=== PATIENT | female | born 1940 | race African-American/Black ===

== ENCOUNTER 2020-11-01 05:16 | Inpatient (IN) ==
[2020-11-01] MEDS ORDERED: VANCOMYCIN INJ 1,000 MG in SODIUM CHLORIDE 0.9% 250 ML IV ONE (06:00)
[2020-11-01] MEDS ORDERED: CLINDAMYCIN INJ 900 MG in PREMIX 1 EACH IV ONE (06:00)
[2020-11-01] MEDS ORDERED: ACETAMINOPHEN 500 MG TABLET PO ONE (06:56)
[2020-11-01] MEDS ORDERED: FAMOTIDINE 20 MG TABLET PO ONE (06:56)
[2020-11-01] MEDS ORDERED: GABAPENTIN 400 MG CAPSULE PO ONE (06:56)
[2020-11-01] MEDS ORDERED: DIAZEPAM 5 MG TABLET PO ONE (06:56)
[2020-11-01] MEDS ORDERED: LACTATED RINGERS 1,000 ML IV SCH (07:00)
[2020-11-01] MEDS ORDERED: ONDANSETRON 4 MG/2 ML VIAL IV PRN (08:37)
[2020-11-01] MEDS ORDERED: MAGNESIUM HYDROXIDE SUSP 30 ML UDCUP PO PRN (08:37)
[2020-11-01] MEDS ORDERED: PROMETHAZINE 25 MG/1 ML VIAL IM PRN (08:37)
[2020-11-01] MEDS ORDERED: BISACODYL 10 MG SUPP RECTAL PRN (08:37)
[2020-11-01] MEDS ORDERED: LACTULOSE 20 GM/30 ML UDCUP PO PRN (08:37)
[2020-11-01] MEDS ORDERED: diphenhydrAMINE CAP 25 MG CAPSULE PO PRN (08:37)
[2020-11-01] MEDS ORDERED: LEVOTHYROXINE 75 MCG TABLET PO SCH (09:00)
[2020-11-01] MEDS ORDERED: LIDOCAINE 1% 5 ML VIAL ONE (11:08)
[2020-11-01] MEDS ORDERED: ROPIVACAINE 0.5% 30 ML VIAL ONE (11:08)
[2020-11-01] MEDS ORDERED: DEXAMETHASONE 4 MG/1 ML VIAL ONE (11:08)
[2020-11-01] MEDS ORDERED: PHENYLEPHRINE 1 MG/10 ML SYRINGE IV ONE ×2 (11:10→12:56)
[2020-11-01] MEDS ORDERED: SODIUM CHLORIDE 0.9% 100 ML IV ONE (11:10)
[2020-11-01] MEDS ORDERED: MIDAZOLAM 2 MG/2 ML VIAL ONE (11:10)
[2020-11-01] MEDS ORDERED: LIDOCAINE 2% 5 ML VIAL ONE (11:10)
[2020-11-01] MEDS ORDERED: fentaNYL 100 MCG/2 ML VIAL ONE (11:11)
[2020-11-01] MEDS ORDERED: BUPIVACAINE SPINAL 0.75% 2 ML AMP SPINAL ONE (12:56)
[2020-11-01] MEDS ORDERED: ONDANSETRON 4 MG/2 ML VIAL ONE (12:56)
[2020-11-01] MEDS ORDERED: TRANEXAMIC ACID 1,000 MG/10 ML VIAL ONE (12:56)
[2020-11-01 15:51] LABS: Basophils % 0.1 % (0.0-0.8); Eosinophils % 0.1 % (0.00-10.9); Hematocrit 34.5 VOL% (35.7-47.0); Hemoglobin 11.6 GM/DL (12.0-16.0); Immature Granulocytes % 0.5 %; Immature Granulocytes Absolute 0.04 #; Lymphocytes # 0.8 10*3/uL (1.4-4.0); Lymphocytes % 9.5 % (21.3-54.2); Mean Corpuscular HGB Conc 33.6 GM/DL (32-36); Mean Corpuscular Volume 87.8 FL (87-102); Mean Platelet Volume 8.6 FL (9.6-12.0); Neutrophils % 86.8 % (38.7-73.9); Platelet Count 424 T/CUMM (130-400); Red Blood Count 3.93 MC/CUMM (3.8-5.5); Red Cell Distribution Width 15.7 % (9.3-17.3); White Blood Count 8.4 T/CUMM (4-12)
[2020-11-01] MEDS: MORPHINE 4 MG/1 ML VIAL IV PRN (15:52)
[2020-11-01 16:09] LABS: Calcium 8.6 MG/DL (8.5-10.1); Osmolality,Calculated 273.8 MOS/KG (273-304); Potassium 3.5 MMOL/L (3.5-5.1)
[2020-11-01] MEDS: GABAPENTIN 300 MG CAPSULE PO SCH (17:25)
[2020-11-01] MEDS: hydroCHLOROthiazide 25 MG TABLET PO SCH (17:26)
[2020-11-01] MEDS: DOCUSATE SODIUM 100 MG CAPSULE PO SCH ×2 (17:26→21:06)
[2020-11-01] MEDS: CLINDAMYCIN INJ 900 MG in PREMIX 1 EACH IV SCH ×2 (17:56→23:44)
[2020-11-01] MEDS ORDERED: FONDAPARINUX 2.5 MG/0.5 ML SYRINGE SUBCUT SCH (20:00)
[2020-11-01] MEDS: SIMVASTATIN 40 MG TABLET PO SCH (21:06)
[2020-11-01] MEDS: amLODIPine 10 MG TABLET PO SCH (21:06)
[2020-11-01] MEDS: LATANOPROST 0.005% OPH SOLN 2.5 ML BOTTLE BOTH EYES SCH (21:06)
[2020-11-01] MEDS: METHOCARBAMOL 750 MG TABLET PO SCH (21:07)
[2020-11-01] MEDS: TEMAZEPAM 7.5 MG CAPSULE PO PRN (21:07)
[2020-11-01] MEDS: MELOXICAM 7.5 MG TABLET PO SCH (21:07)
[2020-11-02] MEDS: FONDAPARINUX 2.5 MG/0.5 ML SYRINGE SUBCUT SCH (05:19)
[2020-11-02] MEDS: LEVOTHYROXINE 75 MCG TABLET PO SCH (05:59)
[2020-11-02 07:54] LABS: Basophils % 0.1 % (0.0-0.8); Hematocrit 32.9 VOL% (35.7-47.0); Hemoglobin 11.1 GM/DL (12.0-16.0); Immature Granulocytes % 0.5 %; Immature Granulocytes Absolute 0.05 #; Lymphocytes # 0.8 10*3/uL (1.4-4.0); Lymphocytes % 7.6 % (21.3-54.2); Mean Corpuscular HGB Conc 33.7 GM/DL (32-36); Mean Corpuscular Volume 87.7 FL (87-102); Mean Platelet Volume 9.2 FL (9.6-12.0); Monocytes % 6.7 % (1.7-12.7); Neutrophils % 85.1 % (38.7-73.9); Platelet Count 440 T/CUMM (130-400); Red Blood Count 3.75 MC/CUMM (3.8-5.5); Red Cell Distribution Width 15.7 % (9.3-17.3); White Blood Count 10.4 T/CUMM (4-12)
[2020-11-02 08:26] LABS: Calcium 8.5 MG/DL (8.5-10.1); Osmolality,Calculated 275.8 MOS/KG (273-304); Potassium 3.4 MMOL/L (3.5-5.1)
[2020-11-02] MEDS: GABAPENTIN 300 MG CAPSULE PO SCH (09:28)
[2020-11-02] MEDS: DOCUSATE SODIUM 100 MG CAPSULE PO SCH ×3 (09:28→21:13)
[2020-11-02] MEDS: hydroCHLOROthiazide 25 MG TABLET PO SCH (09:28)
[2020-11-02] MEDS: MORPHINE 4 MG/1 ML VIAL IV PRN (18:08)
[2020-11-02] MEDS: MELOXICAM 7.5 MG TABLET PO SCH (21:10)
[2020-11-02] MEDS: METHOCARBAMOL 750 MG TABLET PO SCH (21:11)
[2020-11-02] MEDS: TEMAZEPAM 7.5 MG CAPSULE PO PRN (21:11)
[2020-11-02] MEDS: SIMVASTATIN 40 MG TABLET PO SCH (21:12)
[2020-11-02] MEDS: amLODIPine 10 MG TABLET PO SCH (21:13)
[2020-11-02] MEDS: LATANOPROST 0.005% OPH SOLN 2.5 ML BOTTLE BOTH EYES SCH (21:30)
[2020-11-03] MEDS: FONDAPARINUX 2.5 MG/0.5 ML SYRINGE SUBCUT SCH (06:23)
[2020-11-03] MEDS: LEVOTHYROXINE 75 MCG TABLET PO SCH (06:23)
[2020-11-03] MEDS: hydroCHLOROthiazide 25 MG TABLET PO SCH (08:46)
[2020-11-03] MEDS: GABAPENTIN 300 MG CAPSULE PO SCH (08:46)
[2020-11-03] MEDS: DOCUSATE SODIUM 100 MG CAPSULE PO SCH ×2 (08:46→21:16)
[2020-11-03] MEDS ORDERED: POTASSIUM CHLORIDE 20 MEQ TABLET PO ONE (13:00)
[2020-11-03] MEDS: MECLIZINE 25 MG TABLET PO PRN ×2 (16:58→21:07)
[2020-11-03] MEDS: TEMAZEPAM 7.5 MG CAPSULE PO PRN (19:38)
[2020-11-03] MEDS: amLODIPine 10 MG TABLET PO SCH (21:01)
[2020-11-03] MEDS: SIMVASTATIN 40 MG TABLET PO SCH (21:01)
[2020-11-03] MEDS: METHOCARBAMOL 750 MG TABLET PO SCH (21:02)
[2020-11-03] MEDS: MELOXICAM 7.5 MG TABLET PO SCH (21:02)
[2020-11-03] MEDS: LATANOPROST 0.005% OPH SOLN 2.5 ML BOTTLE BOTH EYES SCH (21:10)
[2020-11-04] MEDS: LEVOTHYROXINE 75 MCG TABLET PO SCH (05:40)
[2020-11-04] MEDS: FONDAPARINUX 2.5 MG/0.5 ML SYRINGE SUBCUT SCH (05:40)
[2020-11-04] MEDS: hydroCHLOROthiazide 25 MG TABLET PO SCH (08:03)
[2020-11-04] MEDS: GABAPENTIN 300 MG CAPSULE PO SCH (08:04)
[2020-11-04] MEDS: DOCUSATE SODIUM 100 MG CAPSULE PO SCH (09:16)
[2020-11-04 11:07] VITALS: BP 131/76
== END 2020-11-04 15:02 | disposition swing bed (61) | DRG 470 ==
LOC: N.OR 05:16 → N.SDSINP 05:19 → N.OR 06:17 → N.SDSINP 08:37 → N.3E 15:15
PROVIDERS: ADMIT Orthopaedic Surgery; ATTEND Orthopaedic Surgery

== ENCOUNTER 2021-10-11 05:39 | Observation (INO) ==
[2021-10-11] MEDS ORDERED: ACETAMINOPHEN 500 MG TABLET PO ONE (06:00)
[2021-10-11] MEDS ORDERED: FAMOTIDINE 20 MG TABLET PO ONE (06:00)
[2021-10-11] MEDS ORDERED: GABAPENTIN 400 MG CAPSULE PO ONE (06:00)
[2021-10-11] MEDS ORDERED: KETAMINE 500 MG/10 ML VIAL ONE (06:40)
[2021-10-11] MEDS ORDERED: DEXAMETHASONE 4 MG/1 ML VIAL ONE ×2 (06:40→09:08)
[2021-10-11] MEDS ORDERED: DEXMEDETOMIDINE 200 MCG/2 ML VIAL ONE (06:40)
[2021-10-11] MEDS ORDERED: VANCOMYCIN 1,000 MG VIAL ONE (06:46)
[2021-10-11] MEDS ORDERED: ceFAZolin 1,000 MG VIAL ONE (06:46)
[2021-10-11 07:11] LABS: PT Patient Result 11.4 SECS (10.5-12.0); Partial Thromboplastin Time 29.7 SECS (23.8-32.1)
[2021-10-11] MEDS ORDERED: BUPIVACAINE MPF 0.25% 30 ML VIAL ONE (07:35)
[2021-10-11] MEDS ORDERED: fentaNYL 100 MCG/2 ML VIAL ONE (08:35)
[2021-10-11] MEDS ORDERED: TEMAZEPAM 7.5 MG CAPSULE PO PRN (08:38)
[2021-10-11] MEDS ORDERED: LACTULOSE 20 GM/30 ML UDCUP PO PRN (08:38)
[2021-10-11] MEDS ORDERED: diphenhydrAMINE CAP 25 MG CAPSULE PO PRN (08:38)
[2021-10-11] MEDS ORDERED: ONDANSETRON 4 MG/2 ML VIAL IV PRN ×2 (08:38→10:29)
[2021-10-11] MEDS ORDERED: PROMETHAZINE 25 MG/1 ML VIAL IM PRN (08:38)
[2021-10-11] MEDS ORDERED: BISACODYL 10 MG SUPP RECTAL PRN (08:38)
[2021-10-11] MEDS ORDERED: MAGNESIUM HYDROXIDE SUSP 30 ML UDCUP PO PRN (08:38)
[2021-10-11] MEDS ORDERED: MECLIZINE 25 MG TABLET PO PRN (08:42)
[2021-10-11] MEDS ORDERED: LIDOCAINE 2% 5 ML VIAL ONE (09:08)
[2021-10-11] MEDS ORDERED: ETOMIDATE 40 MG/20 ML VIAL IV ONE (09:08)
[2021-10-11] MEDS ORDERED: ROCURONIUM 50 MG/5 ML VIAL IV ONE (09:08)
[2021-10-11] MEDS ORDERED: GLYCOPYRROLATE 0.4 MG/2 ML VIAL ONE ×2 (09:08→09:22)
[2021-10-11] MEDS ORDERED: PHENYLEPHRINE 1 MG/10 ML SYRINGE IV ONE (09:08)
[2021-10-11] MEDS ORDERED: ONDANSETRON 4 MG/2 ML VIAL ONE (09:08)
[2021-10-11] MEDS ORDERED: DESFLURANE 1 UNIT/15 MINUTE INH ONE ×2 (09:09→09:49)
[2021-10-11] MEDS ORDERED: SODIUM CHLORIDE 0.9% 100 ML IV ONE (09:16)
[2021-10-11] MEDS ORDERED: TRANEXAMIC ACID 1,000 MG/10 ML VIAL ONE (09:16)
[2021-10-11] MEDS ORDERED: NEOSTIGMINE 10 MG/10 ML VIAL ONE (09:22)
[2021-10-11] MEDS ORDERED: LACTATED RINGERS 1,000 ML IV ONE (09:35)
[2021-10-11] MEDS: HYDROmorphone 2 MG/1 ML VIAL IV PRN ×2 (10:18→10:36)
[2021-10-11] MEDS ORDERED: HYDROmorphone 2 MG/1 ML VIAL ONE (10:19)
[2021-10-11] MEDS ORDERED: MORPHINE 2 MG/1 ML SYRINGE IV PRN (15:15)
[2021-10-11] MEDS: MORPHINE 2 MG/1 ML SYRINGE IV PRN (18:30)
[2021-10-11] MEDS: FONDAPARINUX 2.5 MG/0.5 ML SYRINGE SUBCUT SCH (22:11)
[2021-10-11] MEDS: DILTIAZEM CD 120 MG CAPSULE PO SCH (22:12)
[2021-10-11] MEDS: SIMVASTATIN 40 MG TABLET PO SCH (22:12)
[2021-10-11] MEDS: DOCUSATE SODIUM 100 MG CAPSULE PO SCH (22:12)
[2021-10-11] MEDS: GABAPENTIN 300 MG CAPSULE PO SCH (22:12)
[2021-10-11] MEDS: LATANOPROST 0.005% OPH SOLN 2.5 ML BOTTLE BOTH EYES SCH (22:13)
[2021-10-12] MEDS: LACTATED RINGERS 1,000 ML IV SCH ×2 (00:08→07:42)
[2021-10-12 05:41] LABS: Hematocrit 32.6 VOL% (35.7-47.0); Hemoglobin 10.5 GM/DL (12.0-16.0); Immature Granulocytes % 0.5 %; Immature Granulocytes Absolute 0.06 #; Lymphocytes # 0.8 10*3/uL (1.4-4.0); Lymphocytes % 7.5 % (21.3-54.2); Mean Corpuscular HGB Conc 32.2 GM/DL (32-36); Mean Corpuscular Volume 86.9 FL (87-102); Mean Platelet Volume 9.5 FL (9.6-12.0); Monocytes % 6.2 % (1.7-12.7); Neutrophils % 85.8 % (38.7-73.9); Platelet Count 450 T/CUMM (130-400); Red Blood Count 3.75 MC/CUMM (3.8-5.5); Red Cell Distribution Width 16.3 % (9.3-17.3); White Blood Count 11.1 T/CUMM (4-12)
[2021-10-12 06:07] LABS: Calcium 8.6 MG/DL (8.5-10.1); Osmolality,Calculated 274.7 MOS/KG (273-304); Potassium 3.5 MMOL/L (3.5-5.1)
[2021-10-12] MEDS: LEVOTHYROXINE 75 MCG TABLET PO SCH (06:09)
[2021-10-12] MEDS: MORPHINE 2 MG/1 ML SYRINGE IV PRN (06:10)
[2021-10-12] MEDS: POTASSIUM CHLORIDE 20 MEQ TABLET PO SCH (08:36)
[2021-10-12] MEDS: DOCUSATE SODIUM 100 MG CAPSULE PO SCH ×2 (08:37→21:41)
[2021-10-12] MEDS: hydroCHLOROthiazide 25 MG TABLET PO SCH (08:37)
[2021-10-12] MEDS: MULTIVITAMIN (CENTRUM) TABLET PO SCH (08:37)
[2021-10-12] MEDS ORDERED: ACETAMINOPHEN 325 MG TABLET PO PRN (08:41)
[2021-10-12] MEDS: GABAPENTIN 300 MG CAPSULE PO SCH (21:40)
[2021-10-12] MEDS: DILTIAZEM CD 120 MG CAPSULE PO SCH (21:41)
[2021-10-12] MEDS: SIMVASTATIN 40 MG TABLET PO SCH (21:41)
[2021-10-12] MEDS: FONDAPARINUX 2.5 MG/0.5 ML SYRINGE SUBCUT SCH (21:41)
[2021-10-12] MEDS: LATANOPROST 0.005% OPH SOLN 2.5 ML BOTTLE BOTH EYES SCH (21:44)
[2021-10-13] MEDS: LEVOTHYROXINE 75 MCG TABLET PO SCH (05:38)
[2021-10-13] MEDS: LACTATED RINGERS 1,000 ML IV SCH (05:41)
[2021-10-13] MEDS: hydroCHLOROthiazide 25 MG TABLET PO SCH (08:07)
[2021-10-13] MEDS: POTASSIUM CHLORIDE 20 MEQ TABLET PO SCH (08:07)
[2021-10-13] MEDS: DOCUSATE SODIUM 100 MG CAPSULE PO SCH ×2 (08:08→22:17)
[2021-10-13] MEDS: MULTIVITAMIN (CENTRUM) TABLET PO SCH (08:08)
[2021-10-13] MEDS: MORPHINE 2 MG/1 ML SYRINGE IV PRN (10:41)
[2021-10-13] MEDS: GABAPENTIN 300 MG CAPSULE PO SCH (22:16)
[2021-10-13] MEDS: DILTIAZEM CD 120 MG CAPSULE PO SCH (22:16)
[2021-10-13] MEDS: FONDAPARINUX 2.5 MG/0.5 ML SYRINGE SUBCUT SCH (22:17)
[2021-10-13] MEDS: SIMVASTATIN 40 MG TABLET PO SCH (22:17)
[2021-10-13] MEDS: LATANOPROST 0.005% OPH SOLN 2.5 ML BOTTLE BOTH EYES SCH (22:20)
[2021-10-14] MEDS: LACTATED RINGERS 1,000 ML IV SCH (03:02)
[2021-10-14] MEDS: LEVOTHYROXINE 75 MCG TABLET PO SCH (07:38)
[2021-10-14] MEDS: DOCUSATE SODIUM 100 MG CAPSULE PO SCH (09:53)
[2021-10-14] MEDS: MULTIVITAMIN (CENTRUM) TABLET PO SCH (09:53)
[2021-10-14] MEDS: POTASSIUM CHLORIDE 20 MEQ TABLET PO SCH (09:53)
[2021-10-14] MEDS: hydroCHLOROthiazide 25 MG TABLET PO SCH (09:53)
[2021-10-14 16:01] VITALS: BP 140/70
== END 2021-10-14 18:21 | disposition swing bed (61) ==
LOC: N.OR 05:39 → N.SDSINP 05:41 → INTOOBSV 08:38 → N.3E 14:58
PROVIDERS: ADMIT Orthopaedic Surgery; ATTEND Orthopaedic Surgery